=== PATIENT | male | born 1990 ===

== ENCOUNTER 2017-06-08 06:10 | Day surgery (SDC) | payer BC ==
[2017-06-08] MEDS ORDERED: ceFAZolin IV 2 gm in Dextrose 2 GM/50 ML BAG IVPB ONE (07:29)
[2017-06-08] MEDS ORDERED: Midazolam 2 MG/2 ML VIAL ONE (07:35)
[2017-06-08] MEDS ORDERED: Propofol 10 mg/ml Inj (20 ML) ONE (07:35)
[2017-06-08] MEDS ORDERED: Phenylephrine 10 mg/ml Inj ONE (07:39)
[2017-06-08] MEDS ORDERED: Rocuronium 10 mg/ml (10 ml) ONE (07:39)
[2017-06-08] MEDS ORDERED: Lidocaine Hydrochloride 5 ML INJ ONE (07:39)
[2017-06-08] MEDS ORDERED: Lactated Ringer's 1,000 ML IV ONE ×5 (07:45→09:30)
[2017-06-08] MEDS ORDERED: Succinylcholine Chloride 20 mg/ml Syr (5 ml) IV ONE (07:52)
[2017-06-08] MEDS ORDERED: Neostigmine Methylsulfate 3mg/3ml Syringe IV ONE (10:54)
[2017-06-08] MEDS ORDERED: Morphine 4 MG/ML VIAL ONE (11:03)
[2017-06-08] MEDS: HYDROmorphone 0.5 mg/0.5 ml ISec IVP PRN ×4 (11:42→12:25)
[2017-06-08] MEDS ORDERED: Bupivacaine HCl 0.25% PF (10 ml) Inj ONE ×2 (12:51)
--- NOTE | 2017-06-08 13:20 | PCM.ANESB7 ---
Adductor Canal Block - Adductor Canal Block Date of Procedure: 06/08/17 Anesthiologist: Holden Pre-Procedure Diagnosis: s/p right knee arthroscopy with ACL reconstruction Post-Procedure Diagnosis: same Procedure Performed: Adductor Canal Block Right - Procedure Adductor Canal Block: The procedure was explained to the patient that it is for the post-operative pain management. Consent was obtained after a thorough discussion with the patient regarding the benefits and possible complications of local anesthetic adductor canal block of the femoral nerve. PACU monitors were applied to the patient. Time-out was held with the circulating nurse to confirm the appropriate block. The patient was placed in supine position with and the operative leg was flexed slightly at the knee and externally rotated as needed, and was kept anatomically stable. The mid-thigh of the right lower extremity was exposed. The ultrasound transducer was then applied transversely along the medial aspect, about midway down the thigh and the femoral artery and vein were identified in appropriate relation with the sartorius muscle. At this time, the femoral nerve was visualized lateral to the femoral artery within the canal. After thorough identification, this area area was prepped with Chloroprep solution. At this point, a #22 gauge Stimuplex 4-inch needle was inserted in-plane in a [id number] orientation, and advanced toward the femoral nerve. Advancement was performed carefully under direct ultrasound visualization. After negative aspiration, 5cc of 0.25% Bupivacaine was injected and this was followed with 25 cc of 0.25% Bupivacaine. 5cc intermittent injections with intermittent negative aspiration. Under ultrasound guidance the local anesthetics were observed spreading around the femoral nerve. The needle was removed intact and sterile dressing was applied. The patient had stable vital signs, was conscious and in no apparent distress. The patient tolerated the femoral nerve block well with stable vital signs.
[2017-06-08 15:31] VITALS: BP 139/68; PULSE 89; RESP 19; TEMP 97.1; O2SAT 98
--- NOTE | 2017-06-15 19:48 | PCM.SURG1 ---
Surgeon's Initial Post Op Note - Surgeon's Notes Surgeon: Deandra Ramírez MD Water Softener Servicer: Cameron Velasco PA-C Type of Anesthesia: General Endo Pre-Operative Diagnosis: R knee: #1 complete ACL tear. #2 peripheral medial meniscal tear. #3 synovitis. #4 possible chondral injury Operative Findings: R knee: #1 complete ACL tear & instability. #2 medial meniscal tears (anterior horn radial tear/ posterior horn peripheral red-red zone tear, menisco-capsular seperation). #3 lateral meniscus tear (mid-body free edge tear). #4 medial femoral condyle grade 3 chondral injury/ chondromalacia at weight bearing area ([id number]), no full thickness defect seen. #5 synovitis. #6 symptomatic medial plica band Post-Operative Diagnosis: R knee: #1 complete ACL tear & instability. #2 medial meniscal tears (anterior horn radial tear/ posterior horn peripheral red- red zone tear, menisco-capsular seperation). #3 lateral meniscus tear (mid- body free edge tear). 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 #5 synovitis. #6 symptomatic medial plica band Operation Performed: R knee arthroscopic assited: #1 ACL reconstruction w/ allograft HS. #2 Medial meniscal repair (all inside). #3 Partial Lateral Menisectomy. #4 extensive synovectomy (including synovectomy & resection PLICA band) Specimen/Specimens Removed: specimen= none. complications= none. tourniquet time= 0 min. Implants= #1 Arthrex [id number] biocomposite interference screw for tibial ACL fixation, tight rope button with bakery worker for femoral ACL fixation. #2 Lifenet semiT & gracilis allograft. #3 Linvatec all inside Sequent meniscal repair system, 10 implants in total, 3 kits opened Estimated Blood Loss: EBL {In ML}: 10 Blood Products Given: N/A Drains Used: No Drains Post-Op Condition: Good Date of Surgery/Procedure: 06/08/17 Time of Surgery/Procedure: 12:00
--- NOTE | 2017-06-16 10:18 | OP ---
PROCEDURE DATE: 06/08/2017 PREOPERATIVE DIAGNOSES: Right knee: 1. Complete anterior cruciate ligament tear with instability. 2. Peripheral medial meniscal tear. 3. Synovitis. 4. Possible chondral injury. POSTOPERATIVE DIAGNOSES: Right knee: 1. Complete anterior cruciate ligament tear and instability. 2. Medial meniscal tear (anterior horn radial tear and posterior horn peripheral red-red zone tear/meniscal capsular separation). 3. Lateral meniscal tear (mid body free-edge complex tear) 4. Medial femoral condyle grade 3 chondral injury/chondromalacia at weightbearing area, measuring 10 mm x10 mm, no full-thickness defect seen. 5. Synovitis. 6. Symptomatic medial plica band. PROCEDURE: Right knee arthroscopic-assisted: 1. Anterior cruciate ligament reconstruction with allograft hamstring. 2. All-inside medial meniscal repair. 3. Partial lateral meniscectomy. 4. Extensive synovectomy including synovectomy and resection of symptomatic plica band. 5. Chondroplasty of medial femoral condyle. 6. Platelet-rich plasma injection. SURGEON: Deandra Ramírez MD PASTE THINNER: Cameron Velasco PA-C. JUSTIFICATION FOR PASTE THINNER: Cameron Velasco is a certified physician chemical laboratory assistant who serves as a skilled ophthalmic surgical assistant and whose presence was an absolute necessity for successful completion of the procedure, as he provided skilled surgical assistance with positioning of patient, positioning of extremity, management of the surgical belle, retraction of neurovascular structures, preparation of ACL allograft, assistance with preparation and placement of femoral and tibial ACL tunnels, passage of graft, femoral sided and tibial sided fixation of ACL graft, arthroscopic meniscal repair, handling of arthroscopic equipment, wound closure, fitting and placement of postop knee brace. Cameron Velasco was present for the entire case and was an absolute necessity for the successful completion of the procedure. TYPE OF ANESTHESIA: General endotracheal anesthesia with a postop regional nerve block placed by anesthesia staff in PACU. SPECIMEN: None. COMPLICATIONS: None. TOURNIQUET TIME: 0 minutes. ESTIMATED BLOOD LOSS: 10 mL. DRAINS: None. DISPOSITION: The patient was extubated and transferred to PACU in stable condition and tolerated the procedure well. IMPLANTS: 1. Arthrex 10 mm x 28 mm BioComposite interference screw for tibial ACL fixation, TightRope button with button vice president payer for femoral-sided ACL fixation. 2. LifeNet semitendinosus and gracilis tendon allograft. 3. Linvatec all-inside Sequent meniscal repair system, 10 implants in total, 4 at medial meniscal repair, 3 kits opened. INDICATIONS FOR SURGERY: The patient is a 26-year-old male with no significant past medical history, who presented to the office for the first time under my care on 11/24/2016 with right knee pain and instability, with difficulty weightbearing. He states that on 11/11/2016, he was running outside and twisted his knee resulting in immediate 10/10 pain localized to the right knee with swelling and instability, and difficulty weightbearing. He was seen and evaluated at the [facility] Emergency Room, and after review of imaging and evaluation by ER staff, he was diagnosed with a knee sprain and told to follow up with an orthopedic surgeon as an outpatient. On presentation in the office, his clinical presentation was that of a tibial stress fracture and ACL tear, possible meniscus tear. He was placed in an [id number] hinged knee brace and instructed to be strict nonweightbearing to the right lower extremity until his MRI is reviewed. He was referred for MRI, which was done on 11/30/2016 of the right knee at [facility] in [place], which was read as: 1. Torn ACL. 2. Small depressed fracture of the posterior medial tibial plateau. I reviewed the images of he MRI personally, and on my interpretation, there was signal change at the periphery of the medial meniscus with possible meniscal capsular separation and peripheral tear, and I agreed with the complete ACL tear as well as the posterior medial tibial plateau impaction injury. He was made to be strict nonweightbearing on the right lower extremity for 4 weeks followed by progressive rehabilitation protocol. Once the fracture healed, he did not have any more tibial-sided pain. He was compliant with the brace use and physical therapy. He attempted to return to sports and reported that he was unable to perform any pivoting moves or play any sports that required cutting. At that point in time, I reviewed his treatment options with him again. At that point in time, he had regained full range of motion and strength of his knee. He was indicated for right knee arthroscopic assisted ACL reconstruction with allograft hamstring, possible meniscus repair, possible cartilage injury treatment including chondroplasty versus microfracture. 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 After answering all of his questions, he stated that he understood the risks and wished to proceed with surgery. He wanted the surgical animation videos and diagnoses animation videos, and after answering all of his questions, he stated that he understood the multiple diagnoses as well as the multiple parts of the procedure. I reviewed at length with him the postop rehab protocol for an ACL reconstruction and possible meniscus repair or a microfracture, and he stated that he understood the need for compliance with rehab protocol in order to maximize the chances of him having a successful outcome after surgery. He was referred to his primary care physician for PATs and medical evaluation, and the procedure was scheduled on 06/08/2017 at [facility]. DESCRIPTION OF PROCEDURE: The patient was identified in the preoperative holding area and the right knee was marked for surgery. Once again as described above, the risks, benefits and alternatives of the procedure were discussed at length with the patient and informed consent was obtained. After a brief discussion with anesthesia staff, perioperative IV antibiotics in the form of 2 g of Ancef were administered and the patient was taken to the operating room and placed on a well-padded operating room table with all bony prominences and superficial neurovascular structures well padded. General anesthesia was administered without difficulty or complication. Examination under anesthesia was carried out. EXAMINATION UNDER ANESTHESIA: Right knee with full range of motion compared to contralateral knee, no swelling, no warmth, no erythema, skin intact, significant ACL instability with 3+ anterior combination welder apprentice neutral, internal rotation and external rotation without an endpoint, 3+ Lori, 3+ pivot shift, negative reverse Lori, negative posterior drawer, negative posterolateral corner drawer, negative reverse pivot shift, negative dial test, negative opening to medial or lateral joint line at 0 or 30 degrees varus or valgus stress, patella with normal tracking and no evidence of instability and no crepitans, there was a reproducible palpable click at the inferior medial aspect of the patella representing a symptomatic medial plica banding gauging at 30 degrees of flexion. CONTINUATION OF PROCEDURE: A tourniquet was placed high on the right thigh, but never inflated. The right lower extremity was prepped and draped in the standard sterile fashion. A final time-out was done with the surgeon, anesthesia staff and OR staff, all in agreement with the patient, procedure being done and the extremity being operated on. The right knee was prepped and draped in the standard sterile fashion and 50 mL of normal saline were used to insufflate the right knee joint. Anterolateral portal was created with stab incision through the skin, down to subcutaneous tissues, down to level of capsule. Blunt arthroscopic trocar and cannula were inserted into the suprapatellar pouch and insufflation with arthroscopic fluid was begun. Arthroscopic camera was inserted, and with the use of spinal needle localization, optimal entry point for the anteromedial portal was identified. Anteromedial portal was created with stab incision through the skin, down to subcutaneous tissues, down to the level of capsule. An accessory cannula was then inserted through the anteromedial portal and the knee joint was copiously irrigated for better visualization and removal of synovial debris. At that point in time, with the use of an arthroscopic probe, a diagnostic arthroscopy was carried out. DIAGNOSTIC ARTHROSCOPY: Attention was first turned towards the suprapatellar pouch, where there was no evidence of adhesions or loose body. Attention was then turned towards the patellofemoral joint, where there was no evidence of patella or trochlear cartilage injury, with a well-seated patella with no evidence of subluxation or instability. There was a symptomatic thickened hypertrophic synovial band of tissue/plica band that extended to the inferomedial aspect of the patella to the medial retinaculum that appeared to be symptomatic in nature. Attention was then turned towards the medial gutter, where there was no evidence of loose body or other pathology. Attention was then turned towards the medial compartment where the medial femoral condyle at its weightbearing aspect along the medial aspect of the condyle, exhibited grade 2 to 3 chondromalacia area of chondral injury measuring approximately 10 mm x 10 mm with no full-thickness defect seen. On careful evaluation, the medial meniscus exhibited 2 zones of injury. There was a red-red zone peripheral tear at the posterior medial aspect of the medial meniscus, representing a meniscal capsular separation that was of good quality tissue and definitely repairable. There was a second zone of injury as a radial tear at the junction of the anterior horn and anterior body. This radial tear started at the free edge and extended to the red-red zone. Attention was then turned towards the intercondylar notch, where a complete ACL tear with remnant ACL stump was seen, and an intact PCL was seen. Attention was then turned towards the lateral compartment, where immediately seen was a complex free-edge mid body tear of the lateral meniscus with no extension to the periphery. The lateral femoral condyle and lateral tibial plateau exhibited no evidence of injury with intact chondral surface. With the use of radiofrequency ablation, arthroscopic meniscal biters, arthroscopic shaver, a partial lateral meniscectomy was carried out establishing a smooth contour, and debriding and removing the frayed unstable meniscal tissue. All in all, approximately only 5% to 10% of the lateral meniscus was resected, practicing good joint preservation medicine to leave as much of the lateral meniscus behind as possible. With the use of arthroscopic shaver and radiofrequency ablation, the unstable portion of the medial meniscal radial tear was debrided and resected. With the use of the Linvatec all-inside meniscal repair system, attention was first turned towards red-red zone injury at the posterior medial aspect/meniscal capsular separation portion of the medial meniscus tear. With the use of 4 implants in total with good capsular-sided fixation, 3 alternating horizontal and vertical mattress sutures were placed at the posterior medial corner of the medial meniscus establishing a stable all-inside medial meniscal repair with reduction of the posterior medial corner of the meniscus to the posterior medial capsule restoring the meniscal capsular stability and relationship. The construct was tested, and indeed a stable all-inside medial meniscal repair of the posterior medial corner was established. Attention was then turned towards the radial tear at the junction of the anterior horn and anterior body of the medial meniscus. With the use of the Linvatec all-inside meniscal repair system, 4 implants in total were placed in a zig-zag fashion across the radial tear creating a cross stitch configuration that was stable, reducing the two ends of the radial tear together, providing a stable all-inside medial meniscal repair of this radial tear. As a rip-stop mechanism, 2 more implants were placed on both sides of the radial tear to prevent the propagation of the tear anterior or posterior to the radial tear and providing secondary stability to the meniscus repair. Once the medial meniscus all-inside repair of both the zones of injury was completed, attention was then turned towards the ACL reconstruction. With the help of my chemical laboratory assistant, the ACL graft being allograft semitendinosus and gracilis tendons, was prepared successfully and placed on tension to remove any creep from the allograft system. With the use of arthroscopic shaver and radiofrequency ablation, the remnant ACL stump and ligament was debrided. This was a complete proximal tear and the ACL had scarred into the PCL, but there was no connection to the lateral femoral condyle anymore. With the use of the Arthrex over the top FlipCutter guide, optimal positioning at the koi ACL footprint in the anatomic single bundle reconstruction was identified with care taken to maintain an intact back wall to the lateral femoral condyle tunnel. A stab incision was made at the lateral aspect of the distal femur at the lateral femoral condyle to seat the guide on the lateral femoral condyle lateral cortex. An incision was made to skin, down to subcutaneous tissue, down to the iliotibial band, and blunt dissection was carried out to allow access to the lateral femoral condyle, lateral cortex. The FlipCutter drill was advanced from outside and in until it was seen in an intraarticular position. The allograft prepared by my chemical laboratory assistant doubled over measured 9.5 mm and a 9.5 mm FlipCutter drill was advanced from the outside to in until it was seen in an intraarticular position and confirmed to be in a good position. A 30-mm depth, 9.5 mm width femoral tunnel was created with care taken to maintain an intact lateral cortex. There was some question about possible breach, and therefore we proceeded with placement of a TightRope button vice president payer later on. Once the tunnel was established, the FlipCutter drill was removed and FiberStick suture was passed and secured around the outside of the knee through the femoral tunnel to ensure that we can pass the graft later. With the tibial guide, the tibial tunnel was created for the ACL graft. Guidewire was advanced until it was seen in an intraarticular position, at good position just anterior to the PCL. A full-thickness tunnel measuring 9.5 mm width was created from outside to in, as a cannulated drill was passed over the guidewire. This was done after the incision was made and soft tissue was cleared with a soft tissue protector and positioned to create the tunnel at the proximal medial tibial cortex. Once the tibial tunnel was established, all interposed soft tissue at the entry point of both tunnel was debrided to allow for a smooth graft passage. The graft was then passed through the tibial tunnel, and the TightRope button was passed through the femoral tunnel. Under direct visualization, with a TightRope button vice president payer added to the construct, the TightRope button was secured and sat flush on the lateral cortex of the lateral femoral condyle with no interposed soft tissue confirmed under direct visualization and also on fluoroscopic imaging. Once the TightRope was secured, the graft was then advanced, and seated and docked into the femoral tunnel as the TightRope suture was cinched. This was done up to the 20 mm adrienne to allow for further tightening after the tibial tunnel was secured. With the help of my chemical laboratory assistant, the knee was held at 10 degrees flexion and tension was applied to all of the graft limbs while I placed a 10 mm x 28 mm length BioComposite interference screw for tibial sided fixation of the graft. Once the screw was in good position with good fixation achieved and good purchase in the tunnel with good bone quality, attention was then turned back towards the TightRope suture and the graft was cinched a couple of millimeters more providing good stability to the construct. The knee was then tested, and indeed ACL stability had been restored with negative anterior drawer, negative Lori, negative pivot shift. All excess tendon and sutures were removed. Arthroscopic camera was then used to take final images and evaluate the medial meniscal repair and the lateral meniscus one again. Once it was confirmed that the repair was holding to satisfaction, especially the radial tear repair, attention was then turned towards performing a chondroplasty of the medial femoral condyle area of injury. Once again, there was no full-thickness cartilage defect, just a grade 3 injury. Once the unstable fragments of cartilage were removed from the medial femoral condyle, attention was then turned toward performing extensive synovectomy and resection of symptomatic plica band. With the use of arthroscopic shaver and radiofrequency ablation, while maintaining good hemostasis, an extensive synovectomy was carried out to satisfaction removing the hypertrophic synovium and hypertrophic fat pad as well as the symptomatic medial plica band. Once this was completed to satisfaction, final arthroscopic images were taken and all arthroscopic fluid and debris were removed from the knee joint. With the help of anesthesia staff, 5 mL of PRP were obtained and injected intraarticular to help with repair. All wounds were reapproximated with #1 Vicryl suture for iliotibial band repair, followed by 2-0 Vicryl suture for subcutaneous tissue, followed by 3-0 Monocryl sutures for skin. Sterile dressings were applied, followed by a layer of sterile cast padding from the toes up to the superior thigh, followed by a layer of compressive Bandar wrap from the toes in to the superior thigh. A postoperative hinged knee brace supplied by my office was then fitted and placed on the patient before he was extubated. Once the brace was in position, locked at 0 degrees full-extension, the patient was then extubated and transferred to PACU in stable condition and tolerated the procedure well. DISPOSITION: The patient will be discharged home once he is recovered from anesthesia. He will be weightbearing as tolerated to the right lower extremity with the postop hinged knee brace locked in extension. This is to protect the meniscus repair. He has been given a prescription for Percocet for pain control. We discussed at length, DVT prophylaxis options and the patient refused to undergo Lovenox as DVT prophylaxis, and elected to proceed with aspirin 325 twice daily for a period of 4 weeks starting postoperative day #1. He will be referred to start physical therapy. He will follow up in my office at [facility] within 1 week and already has his postoperative appointment set up. They will contact me directly with any questions or concerns. Deandra Ramírez MD
== END 2017-06-08 15:38 | disposition home or self-care (01) ==
LOC: C.SDS 06:10
PROVIDERS: ATTEND Student in an Organized Health Care Education/Training Program
DX: S83.511D Sprain of anterior cruciate ligament of right knee, subsequent encounter (principal); M93.261 Osteochondritis dissecans, right knee; S83.231D Complex tear of medial meniscus, current injury, right knee, subsequent encounter; M65.9 Synovitis and tenosynovitis, unspecified
CPT/HCPCS: 20610; 29881; 29888; 97116; 97161; C1713; C1762; G8978; G8979; G8980; J0171; J0690; J1100; J1170; J2250; J2270; J2370; J2704; J2710; J3010; J7120